=== PATIENT | female | born 1965 | race Caucasian/White ===

== ENCOUNTER 2021-11-08 20:54 | Inpatient (IN) | payer OTHER ==
[~2021-11-08] VITALS: Ht 167.6 cm; Wt 65.1 kg
[2021-11-08] MEDS ORDERED: SODIUM CHLORIDE 0.9% 1,000 ML IV ONE (22:00)
[2021-11-08 22:32] LABS: BASOPHILS % 0.5 % (0.0-2.0); EOSINOPHILS % 1.4 % (0.0-5.0); HEMATOCRIT. 34.1 % (36.0-48.0); HEMOGLOBIN. 11.2 g/dL (12.0-16.0); LYMPHOCYTES % 48.5 % (20.0-50.0); MEAN CORPUSCULAR HEMOGLOBIN 26.8 pg (28.0-32.0); MEAN CORPUSCULAR VOLUME 81.6 fL (81.0-99.0); MONOCYTES % 8.1 % (2.0-8.0); NEUTROPHILS % 41.5 % (40.0-76.0); PLATELET 232 x1000/uL (130-400); RED BLOOD CELL COUNT 4.18 mill/uL (4.2-5.4); RED CELL DISTRIBUTION WIDTH 14.1 % (11.6-14.6)
[2021-11-08 22:39] LABS: PROTHROMBIN TIME 10.4 sec (9.6-11.0)
[2021-11-08 22:40] LABS: CHLORIDE 105 mEq/L (98-107)
[2021-11-09 08:14] LABS: CLARITY URINE CLEAR (CLEAR); COLOR URINE YELLOW (YELLOW); KETONES URINE NEGATIVE (NEGATIVE); LEUKOCYTE ESTERASE URINE NEGATIVE (NEGATIVE); NITRITE URINE NEGATIVE (NEGATIVE); OCCULT BLOOD URINE NEGATIVE (NEGATIVE); PH URINE 5.5 (4.5-8.0); PROTEIN URINE NEGATIVE (NEGATIVE); SPECIFIC GRAVITY URINE 1.044 (1.005-1.030); UROBILINOGEN URINE 0.2 E.U./dL (0.2-1.0)
[2021-11-09] MEDS ORDERED: ONDANSETRON HCL 4MG/2ML INJ IV PRN (08:30)
[2021-11-09] MEDS ORDERED: ACETAMINOPHEN 325MG TABLET PO PRN (08:30)
[2021-11-09] MEDS ORDERED: POTASSIUM CHLORIDE 20MEQ TABLET SR PO NR (09:00)
[2021-11-09] MEDS ORDERED: PIPERACILLIN/TAZ 3.375G PREMIX 50 ML IV SCH (09:45)
[2021-11-09] MEDS: PANTOPRAZOLE SODIUM 40 MG/VIAL IV SCH ×2 (10:24→21:00)
[2021-11-09 12:00] VITALS: BP 129/80
[2021-11-09] MEDS ORDERED: PIPERACILLIN/TAZOBACTAM 3.375GM/50ML PREMIX IV SCH (14:00)
[2021-11-09] MEDS ORDERED: LEVO75TA PO (15:35)
[2021-11-09] MEDS ORDERED: HYDROCODONE/ACETAMINOPHEN 5/325MG TABLET PO PRN (15:45)
[2021-11-09] MEDS ORDERED: NALOXONE HCL 0.4MG/ML VIAL IV PRN (15:45)
[2021-11-09 16:00] VITALS: BP 123/72
[2021-11-09 19:38] LABS: HEMATOCRIT 28.5 % (36.0-48.0); HEMOGLOBIN 9.5 g/dL (12.0-16.0)
[2021-11-09 20:00] VITALS: BP 128/82
[2021-11-09] MEDS: PIPERACILLIN/TAZOBACTAM 3.375G in DEXT 5% WATER 50ML IV SCH (22:00)
[2021-11-10] VITALS: BP 115/75
[2021-11-10 00:40] LABS: HEMATOCRIT 27.9 % (36.0-48.0); HEMOGLOBIN 9.1 g/dL (12.0-16.0)
[2021-11-10 04:00] VITALS: BP 112/66
[2021-11-10] MEDS: PIPERACILLIN/TAZOBACTAM 3.375G in DEXT 5% WATER 50ML IV SCH ×3 (06:20→21:46)
[2021-11-10 06:25] LABS: BASOPHILS % 0.5 % (0.0-2.0); EOSINOPHILS % 2.7 % (0.0-5.0); HEMATOCRIT. 27.8 % (36.0-48.0); HEMOGLOBIN. 9.2 g/dL (12.0-16.0); LYMPHOCYTES % 44.4 % (20.0-50.0); MEAN CORPUSCULAR VOLUME 81.5 fL (81.0-99.0); MEAN PLATELET VOLUME 7.9 fl (7.4-10.4); MONOCYTES % 7.1 % (2.0-8.0); NEUTROPHILS % 45.3 % (40.0-76.0); PLATELET 186 x1000/uL (130-400); RED BLOOD CELL COUNT 3.41 mill/uL (4.2-5.4); RED CELL DISTRIBUTION WIDTH 13.9 % (11.6-14.6)
[2021-11-10 06:46] LABS: CHLORIDE 110 mEq/L (98-107)
[2021-11-10] MEDS: LEVOTHYROXINE SODIUM 75MCG TABLET PO SCH (06:53)
[2021-11-10 08:00] VITALS: BP 116/74
[2021-11-10] MEDS ORDERED: PNEUMOCOCCAL 23-VAL P-SAC VAC 0.5 ML IM ONE (11:30)
[2021-11-10 12:00] VITALS: BP 106/81
[2021-11-10 16:00] VITALS: BP 100/70
[2021-11-10 16:29] LABS: HEMATOCRIT 28.1 % (36.0-48.0); HEMOGLOBIN 9.3 g/dL (12.0-16.0)
[2021-11-10] MEDS ORDERED: BISACODYL 5MG TABLET PO NR ×2 (16:30→20:30)
[2021-11-10] MEDS ORDERED: METOCLOPRAMIDE 10MG/10 ML UDC PO NR (16:30)
[2021-11-10] MEDS ORDERED: SORBITOL 70% SOLN 30ML PO NR ×2 (17:00→21:00)
[2021-11-10 19:59] LABS: HEMATOCRIT 33.7 % (36.0-48.0); HEMOGLOBIN 11.2 g/dL (12.0-16.0)
[2021-11-10 20:00] VITALS: BP 95/66
[2021-11-10] MEDS: METOCLOPRAMIDE 10MG/10 ML UDC PO NR (21:47)
[2021-11-10] MEDS: PANTOPRAZOLE SODIUM 40 MG/VIAL IV SCH (21:49)
[2021-11-11] VITALS: BP 97/63
[2021-11-11 00:57] LABS: HEMATOCRIT 34.5 % (36.0-48.0); HEMOGLOBIN 11.5 g/dL (12.0-16.0)
[2021-11-11 04:00] VITALS: BP 100/68
[2021-11-11] MEDS: PIPERACILLIN/TAZOBACTAM 3.375G in DEXT 5% WATER 50ML IV SCH ×3 (05:06→21:45)
[2021-11-11] MEDS: LEVOTHYROXINE SODIUM 75MCG TABLET PO SCH (05:10)
[2021-11-11 05:44] LABS: PROTHROMBIN TIME 10.6 sec (9.6-11.0)
[2021-11-11 06:13] LABS: BASOPHILS % 0.2 % (0.0-2.0); HEMATOCRIT. 36.4 % (36.0-48.0); MEAN CORPUSCULAR HEMOGLOBIN 26.8 pg (28.0-32.0); MEAN CORPUSCULAR VOLUME 81.7 fL (81.0-99.0); MEAN PLATELET VOLUME 8.2 fl (7.4-10.4); MONOCYTES % 1.8 % (2.0-8.0); PLATELET 261 x1000/uL (130-400); RED BLOOD CELL COUNT 4.46 mill/uL (4.2-5.4); RED CELL DISTRIBUTION WIDTH 14.1 % (11.6-14.6)
[2021-11-11 08:00] VITALS: BP 111/71
[2021-11-11 08:44] LABS: CHLORIDE 117 mEq/L (98-107)
[2021-11-11] MEDS: PANTOPRAZOLE SODIUM 40 MG/VIAL IV SCH ×3 (11:10→21:46)
[2021-11-11 12:00] VITALS: BP 105/68
[2021-11-11 13:04] LABS: HEMATOCRIT 33.7 % (36.0-48.0); HEMOGLOBIN 10.5 g/dL (12.0-16.0)
[2021-11-11] MEDS ORDERED: MIDAZOLAM HCL 5 MG/5 ML VIAL ONE ×2 (15:39)
[2021-11-11] MEDS ORDERED: FENTANYL CITRATE/PF 50MCG/ML 2ML VIAL ONE (15:39)
[2021-11-11 16:00] VITALS: BP 113/64
[2021-11-11] MEDS ORDERED: DIAZEPAM 5 MG/ML 2ML CPJ IV PRN (16:12)
[2021-11-11] MEDS ORDERED: DIAZEPAM 5 MG/ML 2ML CPJ ONE (16:14)
[2021-11-11] MEDS ORDERED: MIDAZOLAM HCL 2 MG/2 ML VIAL IV PRN (16:15)
[2021-11-11 20:00] VITALS: BP 121/80
[2021-11-11] MEDS: METOCLOPRAMIDE 10MG/10 ML UDC PO NR (21:46)
[2021-11-12] VITALS: BP 116/70
[2021-11-12 04:00] VITALS: BP 101/60
[2021-11-12] MEDS ORDERED: PNEUMOCOCCAL 23-VAL P-SAC VAC 0.5 ML IM ONE (06:00)
[2021-11-12] MEDS: PIPERACILLIN/TAZOBACTAM 3.375G in DEXT 5% WATER 50ML IV SCH ×2 (06:16→13:41)
[2021-11-12] MEDS: LEVOTHYROXINE SODIUM 75MCG TABLET PO SCH (06:16)
[2021-11-12 08:00] VITALS: BP 94/63
[2021-11-12] MEDS: PANTOPRAZOLE SODIUM 40 MG/VIAL IV SCH (08:29)
[2021-11-12 12:00] VITALS: BP 104/55
[2021-11-12 12:32] VITALS: BP 104/55
== END 2021-11-12 14:05 | disposition home or self-care (01) | DRG 378 ==
LOC: ER 20:54 → EDBEDREQ 11-09 08:13 → EDBEDREQTM 11-09 08:13 → ENRESERV 11-09 09:35 → 8WST 11-09 10:56
PROVIDERS: ADMIT Internal Medicine; ATTEND Emergency Medicine
PROC: 0DJD8ZZ Inspection of Lower Intestinal Tract, Via Natural or Artificial Opening Endoscopic (ICD-10-PCS; principal; 2021-11-11)
DX: K92.2 Gastrointestinal hemorrhage, unspecified (principal); C18.9 Malignant neoplasm of colon, unspecified; E87.0 Hyperosmolality and hypernatremia; E87.6 Hypokalemia; D64.9 Anemia, unspecified; E03.9 Hypothyroidism, unspecified; K52.9 Noninfective gastroenteritis and colitis, unspecified; R00.2 Palpitations; K63.89 Other specified diseases of intestine; R55 Syncope and collapse; Z20.822 Contact with and (suspected) exposure to COVID-19; R73.9 Hyperglycemia, unspecified; K64.8 Other hemorrhoids; K76.0 Fatty (change of) liver, not elsewhere classified; K76.89 Other specified diseases of liver; Z98.51 Tubal ligation status
CPT/HCPCS: 36415; 74177; 80048; 80053; 81003; 82105; 82378; 84443; 85014; 85018; 85025; 86301; 86850; 86900; 87426; 90732; 93005; 99285; C9113; J2250; J2405; J2543; J3010; J7030; J7060; J8597

== ENCOUNTER 2021-12-21 10:58 | Emergency (ER) | payer OTHER ==
[~2021-12-21] VITALS: Ht 170.2 cm; Wt 72.0 kg
[~2021-12-21 10:58] MED LIST: LEVO75TA PO
[2021-12-21 12:02] LABS: BASOPHILS % 0.6 % (0.0-2.0); HEMATOCRIT. 36.5 % (36.0-48.0); HEMOGLOBIN. 11.8 g/dL (12.0-16.0); LYMPHOCYTES % 37.9 % (20.0-50.0); MEAN CORPUSCULAR HEMOGLOBIN 26.5 pg (28.0-32.0); MEAN CORPUSCULAR VOLUME 81.7 fL (81.0-99.0); MEAN PLATELET VOLUME 7.7 fl (7.4-10.4); NEUTROPHILS % 53.5 % (40.0-76.0); PLATELET 285 x1000/uL (130-400); RED BLOOD CELL COUNT 4.46 mill/uL (4.2-5.4); RED CELL DISTRIBUTION WIDTH 13.8 % (11.6-14.6)
[2021-12-21 12:04] LABS: CHLORIDE 109 mEq/L (98-107)
[2021-12-21 12:09] LABS: PROTHROMBIN TIME 10.6 sec (9.6-11.0)
[2021-12-21 13:18] VITALS: BP 110/83
== END 2021-12-21 13:25 | disposition home or self-care (01) ==
LOC: ER 11:09
DX: R06.02 Shortness of breath (principal); R53.1 Weakness; F41.9 Anxiety disorder, unspecified; E03.9 Hypothyroidism, unspecified; Z98.51 Tubal ligation status
CPT/HCPCS: 36415; 71045; 80053; 83880; 84484; 85025; 93005; 99285